=== PATIENT | female | born 1950 | race Caucasian/White ===

== ENCOUNTER 2019-09-17 00:06 | Day surgery (SDC) | payer MEDICARE, SELFPAY ==
[2019-09-02 13:32] VITALS: BMI 42.9
[2019-09-17] VITALS (9 sets, daily range): BP systolic 142–167; BP diastolic 72–94; PULSE 73–87; RESP 11–20; TEMP 36.6–37.2; O2SAT 97–100
[2019-09-17] MEDS: LACTATED RINGERS 1,000 ML 30 ML IV CONT (06:30)
--- NOTE | 2019-09-17 06:38 | WPDANESEPPF ---
Anes - Initial Pre Proc Eval Procedure: Operation Date: 09/17/19 07:30 Proposed Procedures p Right Knee Arthroscopy, Partial Medial Meniscectomy(Right) - Mack Silvestre MD Date/Time: 09/17/19 06:38 Surgeon: Mack Silvestre MD Pre Op Diagnosis: Right Medial Meniscus Tear Patient Data Age: 69 Gender: F Height: 1.63 m Weight: 113.4 kg Allergies Allergy/AdvReac Type Severity Reaction Status Date / Time Iodinated Contrast Media Allergy Intermediate Hypotension Verified 09/13/19 13:13 iopamidol Allergy Intermediate Hypotension Verified 09/13/19 13:13 Home Medications Medication Instructions Recorded Confirmed Type cetirizine 10 mg tablet 5 mg PO DAILY 05/25/19 09/13/19 History doxycycline hyclate 50 mg tablet 50 mg PO DAILY 05/25/19 09/13/19 History omeprazole 20 mg capsule,delayed 20 mg PO DAILY 05/25/19 09/13/19 History release apixaban [Eliquis] 5 mg PO BID 09/02/19 09/13/19 History losartan 100 mg PO DAILY 09/02/19 09/13/19 History Patient hx anesthesia problems: post op nausea/vomiting (1 occurence during 5 hour cardiac ablation) Family hx anesthesia problems: none PMFSH Past Medical History Medical History (Updated 09/17/19 @ 06:44 by Davide Ballard DO) Arthritis Atrial fibrillation s/p ablation 05/2019 Fatigue Hypertension Obesity Surgical History Surgical History (Updated 09/13/19 @ 13:14 by Mack Silvestre MD) Acute medial meniscus tear of right knee History of cardiac radiofrequency ablation History of cataract surgery History of cholecystectomy History of oophorectomy Anes - Eval Final PreProcedure Day of Procedure 09/17/19 06:38 Patient weight: morbidly obese Heart: regular rate and rhythm Lungs: clear to auscultation and normal air movement Airway: Mallampati scale class II Neurological: alert and oriented Last oral intake: >/= 8 hours ASA classification: III Emergent: no Anesthetic plan: proceed Anesthesia type and monitoring: general LMA and standard monitoring Informed Consent: The patient's anesthetic plan and its attendant risks and benefits were discussed with the patient/family/POA. Questions were solicited and answers provided to the satisfaction of the patient/family/POA.
--- NOTE | 2019-09-17 07:20 | WPDHPUPDATE1 ---
History and Physical Update Update Date/Time: 09/17/19 07:20 History and Physical has been reviewed, including an updated exam of the patient. There are NO changes in the patient's condition. Risks, benefits, and alternatives have been discussed and questions answered. Patient agrees to proceed with procedure.
[2019-09-17] MEDS: ceFAZolin 2 GM/D5W 50 ML 2 GM/50 ML BAG IVPB (07:29)
[2019-09-17] MEDS: BUPIVACAINE/EPINEPHRINE 0.5% 10 ML VIAL 20 ML INFILTRATE (07:53)
--- NOTE | 2019-09-17 08:12 | PM.PROC ---
Procedure Note - Detailed Date of procedure: 09/17/19 Pre-op diagnosis: Right Medial Meniscus Tear Medial meniscus tear. Post-op diagnosis: same Procedure performed: Arthroscopic partial medial meniscectomy. Anesthesia: GETA Surgeon: Mack Silvestre MD Estimated blood loss (mL): 5 Tourniquet time (min): 8 Complications: None Condition: stable Disposition: PACU Findings: Brief History: The patient complained of knee pain, swelling and mechanical symptoms despite conservative treatment. MRI confirmed the presence of a meniscus tear. Operative Findings: Complex medial tear. Very unstable beak medial. posterior horn tear also. Subtotal meniscectomy central medial. 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 Loose flaps where tapered to limited catching. The lateral compartment was normal. ACL intact. Grade 2 patellofemoral disease. Procedure Details: The patient was identified and the surgical site confirmed and signed in the preoperative holding area. Antibiotics were started per protocol. She was brought to the operative room and transferred to the OR table. A general anesthetic was administered. Supine position with the operative lower extremity position in the leg moctezuma after placement of a well padded tourniquet. The leg support was lowered and the contralateral limb was supported with a soft bolster. The knee was prepped and draped in the usual sterile fashion. A time-out was performed. The portal sites were marked and infiltrated with 0.5% Marcaine 20 mL. The limb was exsanguinated and the tourniquet inflated to 300 mL Hg. Standard inferolateral and inferomedial portals were established. Inflow was obtained with the saline pump. The camera was introduced. Diagnostic inspection of the joint was accomplished. The meniscus was debrided with the arthroscopic shaver and punches until stable. The arthroscopic instruments were removed. The tourniquet released and wounds closed with subcutaneous 3-0 Monocryl absorbable suture. Steri strips and a sterile dressing were applied. A light elastic wrap was placed. The patient was extubated and brought to the recovery room in stable condition.
--- NOTE | 2019-09-17 10:06 | SUR.OPER ---
ebl:[id number]
== END 2019-09-17 10:00 | disposition home or self-care (01) ==
PROVIDERS: Visit Provider Orthopaedic Surgery
PROC: (CPT 29870; principal; 2019-09-17 07:30)
DX: M23.331 Other meniscus derangements, other medial meniscus, right knee (principal); M94.261 Chondromalacia, right knee; I10 Essential (primary) hypertension; M19.90 Unspecified osteoarthritis, unspecified site; E66.01 Morbid (severe) obesity due to excess calories; Z68.41 Body mass index [BMI] 40.0-44.9, adult; Z79.01 Long term (current) use of anticoagulants
CPT/HCPCS: 29881; J0690; J1100; J2405; J2704; J3010; J7120